=== PATIENT | male | born 2000 ===

== ENCOUNTER 2021-11-14 08:35 | Outpatient (CLI) | payer BC, SELFPAY ==
[2021-11-14 11:57] LABS: SARS-CoV-2 RNA PCR Negative (Negative)
== END 2021-11-14 08:36 | disposition home or self-care (01) ==
PROVIDERS: PCP Pediatrics; Visit Provider Pediatrics
DX: Z20.822 Contact with and (suspected) exposure to COVID-19 (principal)
CPT/HCPCS: C9803; U0003; U0005

== ENCOUNTER 2022-03-08 08:50 | Outpatient (CLI) | payer BC, SELFPAY ==
--- NOTE | ~2022-03-08 | XR_ITS ---
XR lumbar spine 2-3V DATE: 03/08/2022 09:15 INDICATION: Low back pain for 3 months with movement TECHNIQUE: AP, lateral, coned lateral lumbosacral views COMPARISON: None FINDINGS: There is 24 degrees rotatory levoscoliosis measured from T12 to L4. There is a transitional lumbosacral vertebra sacralization pseudoarthrosis on the right, lumbarizatio n on the left. No fracture or bone destruction is evident. The lumbar pedicles are intact. No spondylolisthesis. Spinal stenosis is not excluded. Lumbar and lumbosacral interspaces are relatively intact. The sacrum joints are normal. 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
== END 2022-03-08 08:51 | disposition home or self-care (01) ==
LOC: CHSIMG 08:52
PROVIDERS: PCP Internal Medicine; Visit Provider Internal Medicine
DX: M54.50 Low back pain, unspecified (principal)
CPT/HCPCS: 72100

== ENCOUNTER 2022-04-28 16:33 | Outpatient (RCR) | payer BC, SELFPAY ==
--- NOTE | 2022-04-28 15:42 | PTOPEVAL ---
Thank you for referring Kavon Munson to [facility].? The patient is scheduled to be seen for therapy? __2__x/week for 12 visits. Please review, sign, date and return this plan of care SAIRA. I agree with and certify that the following plan of care is medically necessary. Referring Physician Date Admitting Provider: Attending Provider: Ran Jean MD Referring Provider: *PT Outpatient Evaluation Start: 04/28/22 14:06 Freq: Status: Active Protocol: Document 04/28/22 15:01 DENNY (Rec: 04/28/22 15:41 DENNY [email or web address]) Therapy Assessment Status Assessment Status Assessment Status Evaluation Evaluation Information Problem Diagnosis low back pain, left leg pain, L5-S1 disc herniation Onset 11/09/21 Subjective Information Pt. reports that he developed Query Text:As Reported By Patient/ left leg and thigh pain around Family the end of Oct. He reports that pain is located around the left buttock and into the described left hamstring. He report that pain will come and go. He report pain is worsened with laying on his back and walking. He reports that he underwent MRI. He reports that he did receive a cortisone injection which did not relieve his pain. He reports that standing or walking for greater than 10-15 minutes is difficult and he states that pain is releived with hunching over objects. He reports that his goal is to decrease his back pain and be able to stand longer. Prior Level of Function Activity Level (Last 3 Months) Occupation student Hand Dominance Right Activity of Daily Living Ability Independent Indoor/Home Mobility Independent Community Mobility Independent Stairs Ability Independent Functional Cognition (Planning, Shopping Independent , Taking Medications) Cooking Yes Cleaning Yes Laundry Yes Shopping Yes Driving Yes Pain Assessment Timing of Pain Assessment Timing of Pain Assessment Pre-Treatment Pain Scale Pain Scale Used Numeric (1 - 10) Self R
== END 2022-06-07 18:30 | disposition home or self-care (01) ==
LOC: CHSPT 16:33
PROVIDERS: Visit Provider Neurological Surgery
DX: M79.605 Pain in left leg (principal); M54.50 Low back pain, unspecified
CPT/HCPCS: 97014; 97110; 97161; 97530; G0283

== ENCOUNTER 2023-08-15 13:35 | Outpatient (CLI) | payer BC, SELFPAY ==
--- NOTE | ~2023-08-15 | XR_ITS ---
XR knee LT 3V 08/15/2023 14:14 INDICATION: Left knee pain PROCEDURE: 3 views left knee COMPARISON: No prior studies for comparison. FINDINGS: Fracture, dislocation or subluxation is not identified. The soft tissues appear within norm al limits. No foreign bodies are identified. IMPRESSION: 1: NO ACUTE BONE OR JOINT ABNORMALITY IDENTIFIED. Reviewed, dictated and finalized at location B. [employer]
[2023-08-15 13:53] LABS: Basophils Absolute Auto 0.02 K/mm3 (0.00-0.10); Basophils Percent Auto 0.4 % (0.0-1.0); Eosinophils Absolute Auto 0.09 K/mm3 (0.02-0.50); Eosinophils Percent Auto 1.7 % (1.0-6.0); Hematocrit 45.4 % (40.0-54.0); Hemoglobin 15.9 g/dL (14.0-18.0); Immature Granulocyte Absolute 0.01 K/mm3 (0.00-0.00); Immature Granulocyte Percent A 0.2 % (0.0-0.0); Lymphocytes Absolute Auto 1.33 K/mm3 (1.10-4.50); Lymphocytes Percent Auto 25.5 % (18.0-42.0); Mean Corpuscular Hemoglobin 29.4 pg (27.0-31.0); Mean Corpuscular Volume 83.9 fL (78.0-102.0); Mean Platelet Volume 7.8 fl (8.7-11.0); Monocytes Absolute Auto 0.41 K/mm3 (0.10-0.90); Monocytes Percent Auto 7.9 % (2.0-11.0); Neutrophils Absolute Auto 3.4 K/mm3 (1.7-7.2); Neutrophils Percent Auto 64.3 % (50.0-70.0); Platelet Count Result 245 K/mm3 (150-420); Red Blood Count 5.41 M/mm3 (4.70-6.10); White Blood Count 5.2 K/mm3 (4.8-10.8)
[2023-08-15 14:20] LABS: Uric Acid 5.6 mg/dL (3.5-7.2)
[2023-08-15 14:23] LABS: Rheumatoid Factor Screen Negative (Negative)
[2023-08-15 14:28] LABS: CRP < 0.5 mg/dL (0.0-0.9)
[2023-08-15 14:52] LABS: Erythrocyte Sedimentation Rate 12 mm/hr (0-15)
[2023-08-18 05:56] LABS: Lyme Disease Ab (IgM), Blot Negative (Negative); Lyme Disease Ab(IgG), Blot Negative (Negative)
[2023-08-18 14:07] LABS: ANA Titer 1:40 (Negative)
== END 2023-08-15 13:36 | disposition home or self-care (01) ==
LOC: CHSLAB 13:37
PROVIDERS: PCP Internal Medicine; Visit Provider Internal Medicine
DX: M25.562 Pain in left knee (principal)
CPT/HCPCS: 36415; 73562; 84550; 85025; 85652; 86038; 86039; 86140; 86430; 86431; 86617

== ENCOUNTER 2023-09-08 16:04 | Outpatient (RCR) | payer BC, SELFPAY ==
--- NOTE | 2023-09-08 16:57 | PTOPEVAL1 ---
Assessment and note entered by JT File, PT Evaluation Information Assessment Status Evaluation Diagnosis L knee pain Onset 08/16/23 Subjective Information patient reports he has no recollection of an injury. he reports he has been having pain in the L knee for 2+ years. he reports however, since the nerve ablation in the spine he has had increased L knee pain. he reports he has pain randomly. he reports sometimes sitting is bad, standing can be bad, but in general standing is worse. he reports it doesnto lock on him. he reports no issues with stairs. he reports he notices it the most when sleeping. he reports he is unable to get comfortable to fall asleep. Reported Pain Level Pain Score 4: Self Report Assessment PT Clinical Summary mr. egan is a 23 yo man who presents to skilled PT for evaluation and treatment of L knee pain. he presents today with pain, L hip weakness, L hamstrings tightness, and special tests indicating a LCL/meniscus strain. he would benefit from continued skilled PT to address his objective/ functional deficits and improve his functional activity performance and quality of life. Plan of Care Interventions Electrical Stimulation,Gait Training,Hot Pack/Cold Pack,Manual Therapy,Neuro Re-education,Patient/ Caregiver Educati,Therapeutic Activities, Therapeutic Exercise PT Services Indicated Yes Treatment Frequency and 2x weekly for 8 visits Duration These treatments will address the objective and functional deficits as defined above. The patient will be advanced safely and appropriately in order for the patient to progress towards his/her prior level of function. Additional exercises will be introduced and as well as a comprehensive home exercise program upon discharge, if needed, ?to ensure carryover of functional gains achieved in the clinic. This treatment plan has been reviewed and agreement upon by the patient.
--- NOTE | 2023-10-06 08:24 | OPREHPOC ---
Outpatient Therapy Plan of Care This is a Multidisciplinary Plan of Care that may contain components documented by all disciplines (PT, OT, and ST.) PT Problem 1 PT Problem #1 Knowledge Deficit PT Goal 1 Goal 1. independent and compliant with HEP Target Visit 4 Progress Met PT Problem 2 PT Problem #2 Pain PT Goal 1 Goal 1. 1/0 pain or less at worst in the L knee Target Visit 8 Progress Not Met PT Problem 3 PT Problem #3 Impaired Strength PT Goal 1 Goal 1. 5/5 L hip strength Target Visit 8 Progress Met PT Problem 4 PT Problem #4 Impaired Flexibility PT Goal 1 Goal 1. 20 degrees or less L hamstrings tightness per the 90/90 test Target Visit 8 Progress Not Met PT Problem 5 PT Problem #5 Impaired Functional Mobil PT Goal 1 Goal 1. LEFS to display less than 20% functional deficits 2. patient to ambulate 10 minutes without pain 3. patient to perform 10 sit to stands from chair without pain 4. patient to begin workout program 3x weekly to improve LE and core strength Target Visit 8 Progress Partially Met Comment 1, not met
--- NOTE | 2023-10-06 08:25 | PTOPDC ---
Assessment and note entered by Radha Lo DPT Evaluation Information Assessment Status Re-evaluation Diagnosis L knee pain Onset 08/16/23 Subjective Information He reports he feels like walking has improved since start of PT with ability to walk <10 minutes . He reports he is compliant with HEP. He reports his knee is continuing to cause difficulty falling asleep. Reported Pain Level Pain Score 2: Self Report Assessment PT Clinical Summary Mr. Munson attended 8 visits of skilled PT with goals for strength and ROM met. He continues to report posterior knee discomfort but reports overall improvement and return to all prior activities. He is independent with HEP and is appropriate for DC at this time. Plan of Care PT Services Indicated No
== END 2023-10-05 10:56 | disposition home or self-care (01) ==
LOC: CHSPT 16:04
PROVIDERS: PCP Internal Medicine; Visit Provider Internal Medicine
DX: M25.562 Pain in left knee (principal)
CPT/HCPCS: 97014; 97110; 97140; 97150; 97161; G0283